=== PATIENT | female | born 2000 | race Two or more races ===

== ENCOUNTER 2025-01-16 19:09 | Inpatient (IN) | payer OTHER ==
[~2025-01-16] VITALS: Ht 157.5 cm; Wt 2.3 kg
[2025-01-16 18:18] VITALS: BP 123/75
[2025-01-16] MEDS ORDERED: BETAMETHASONE ACETATE,SOD PHOS 30 MG/5 ML ML ONE (19:18)
[2025-01-16] MEDS ORDERED: CEFAZOLIN SODIUM 1,000 MG VIAL ONE (19:19)
[2025-01-16] MEDS ORDERED: BETAMETHASONE ACETATE,SOD PHOS 30 MG/5 ML ML IM ONE (19:30)
[2025-01-16] MEDS ORDERED: CEFAZOLIN SODIUM 1,000 MG VIAL IV SCH (19:30)
[2025-01-16] MEDS ORDERED: RINGERS SOLUTION,LACTATED 1,000 ML IV SCH ×2 (19:30→23:00)
[2025-01-16] MEDS ORDERED: PRENATA CHEWAB1 EACH PO (19:31)
[2025-01-16] MEDS ORDERED: [UNRECOGNIZED DRUG - OTHER] PO (19:31)
[2025-01-16] MEDS ORDERED: OXYTOCIN 10 UNITS/ML VIAL ONE (19:43)
[2025-01-16] MEDS ORDERED: ERYTHROMYCIN BASE OPHT 1GM EACH TUBE OP ONE (19:44)
[2025-01-16 19:54] LABS: BASO % 0.2 % (0.1-1.2); EOS # 0.23 (0.04-0.54); EOS % 1.6 % (0.7-7.0); LYMPH # 1.83 (1.18-3.74); LYMPH % 12.6 % (19.3-53.1); MEAN PLATELET VOLUME 10.40 fl (9.4-12.4); MONO # 1.12 (0.24-0.82); MONO % 7.7 % (4.7-12.5); NEUT # 11.13 (1.56-6.13); NEUT % 76.7 % (34.0-71.1); RED CELL DISTRIBUTION WIDTH 13.4 % (11.6-14.4)
[2025-01-16 19:56] LABS: URINE APPEARANCE Clear; URINE BILIRRUBIN Negative (NEGATIVE); URINE BLOOD Large; URINE COLOR Yellow; URINE GLUCOSE Negative (NEGATIVE); URINE KETONE Negative (NEGATIVE); URINE LEUKOCYTE Small; URINE NITRATE Negative; URINE PROTEIN Negative (NEGATIVE); URINE UROBILINOGEN 1.0 E.U./dl
[2025-01-16 20:00] LABS: URINE BACTERIA 1491.5 uL (0.0-1933); URINE EPITHELIAL CELLS 23.6 uL (0.0-38.8); URINE RBC 27.2 uL (0.0-20.8); URINE WBC 32.1 uL (0.0-23.2)
[2025-01-16 20:01] LABS: URINE CAST 0.00 uL (0.0-1.40)
[2025-01-16 20:14] LABS: INR 0.96
[2025-01-16 20:20] LABS: ALT/SGPT 16.0 U/L (12-78); AST/SGOT 15.0 U/L (15-37); BILIRUBIN TOTAL 0.32 mg/dL (0.3-1.2); BUN CREA RATIO 8.0 (7.0-25.0); CREATININE SERUM 0.5 mg/dL (0.55-1.02); GFR 150.33; GLOBULINA 3.7 G/DL (2.4-3.5); GLUCOSE FASTING 74.0 mg/dL (65-100); OSMOLALITY SERUM 273.0 MOSM/KG (275-295)
[2025-01-16] MEDS ORDERED: ONDANSETRON HCL 2 MG/ML VIAL IV PRN (23:00)
[2025-01-16] MEDS ORDERED: MORPHINE SULFATE 4 MG/ML CARTRIDGE IV PRN (23:15)
[2025-01-17] MEDS ORDERED: ACETAMINOPHEN 500 MG GEL..CAP PO SCH
[2025-01-17] MEDS ORDERED: KETOROLAC TROMETHAMINE 30 MG VIAL IV SCH
[2025-01-17 02:20] VITALS: BP 93/51
[2025-01-17] MEDS ORDERED: OxyCODONE HCL 5 MG TABLET (ROXICODONE) PO PRN (06:00)
[2025-01-17 06:57] LABS: BASO % 0.2 % (0.1-1.2); EOS # 0.01 (0.04-0.54); EOS % 0.0 % (0.7-7.0); LYMPH # 0.87 (1.18-3.74); LYMPH % 3.9 % (19.3-53.1); MEAN PLATELET VOLUME 10.80 fl (9.4-12.4); MONO # 0.59 (0.24-0.82); MONO % 2.7 % (4.7-12.5); NEUT # 20.39 (1.56-6.13); NEUT % 92.1 % (34.0-71.1); RED CELL DISTRIBUTION WIDTH 13.2 % (11.6-14.4)
[2025-01-17 08:17] VITALS: BP 90/50
[2025-01-17] MEDS ORDERED: SIMETHICONE 125 MG CAPSULE PO SCH (19:30)
[2025-01-17] MEDS ORDERED: DOCUSATE SODIUM 100MG CAP PO SCH (19:30)
[2025-01-17 19:33] VITALS: BP 100/60
[2025-01-17] MEDS ORDERED: KETOROLAC TROMETHAMINE 30 MG VIAL IV NR (23:00)
[2025-01-18 00:11] VITALS: BP 117/74
[2025-01-18 08:41] VITALS: BP 96/57
[2025-01-18] MEDS ORDERED: ADVIL100 M1 PO (14:27)
[2025-01-18] MEDS ORDERED: PAIN RELIEVER500 M2 PO (14:31)
[2025-01-18] MEDS ORDERED: COLACE100 MG PO (14:31)
[2025-01-18] MEDS ORDERED: OXYCODONE HCL5 MG PO (14:31)
== END 2025-01-18 15:44 | disposition home or self-care (01) | DRG 785 ==
LOC: OB/GYN 19:09 → LDR 19:09 → OB/GYN 23:29
PROVIDERS: Obstetrics & Gynecology Obstetrics; ADMIT General Practice; ATTEND General Practice
PROC: 0UB70ZZ Excision of Bilateral Fallopian Tubes, Open Approach (ICD-10-PCS; 2025-01-16)
PROC: 4A1HXCZ Monitoring of Products of Conception, Cardiac Rate, External Approach (ICD-10-PCS; 2025-01-16)
PROC: 10D00Z1 Extraction of Products of Conception, Low, Open Approach (ICD-10-PCS; principal; 2025-01-16 20:00)
DX: O60.14X0 Preterm labor third trimester with preterm delivery third trimester, not applicable or unspecified (principal); O34.211 Maternal care for low transverse scar from previous cesarean delivery; Z3A.33 33 weeks gestation of pregnancy; Z37.0 Single live birth; Z30.2 Encounter for sterilization